=== PATIENT | male | born 1940 | race Caucasian/White ===

== ENCOUNTER 2016-08-10 06:52 | Day surgery (SDC) ==
[2016-08-10] MEDS: AK-DILATE 10% OPTH SOL OP ONE ×3 (07:20→07:30)
[2016-08-10] MEDS: OCUFEN 0.03% OPTH SOL OP ONE ×3 (07:20→07:50)
[2016-08-10] MEDS: CYCLOGYL 2% OPTH OP ONE ×3 (07:20→07:30)
[2016-08-10] MEDS: TETRACAINE 0.5% OPTH SOL MM ONE ×3 (07:20→07:50)
[2016-08-10] MEDS ORDERED: LIDOCAINE 1% 20 ML MDV ONE (07:23)
[2016-08-10] MEDS ORDERED: LIDOCAINE 1% 20 ML MDV ID ONE (07:23)
[2016-08-10] MEDS ORDERED: OCUFEN 0.03% OPTH SOL OP PRN (07:41)
[2016-08-10] MEDS ORDERED: CYCLOGYL 2% OPTH OP PRN (07:41)
[2016-08-10] MEDS ORDERED: TETRACAINE 0.5% UNIT-DOSE OP PRN (07:41)
[2016-08-10] MEDS ORDERED: AK-DILATE 10% OPTH SOL OP PRN (07:41)
[2016-08-10] MEDS ORDERED: VERSED ONE (09:00)
[2016-08-10] MEDS ORDERED: BETADINE OPTH PREP OP ONE (09:05)
[2016-08-10] MEDS ORDERED: LIDOCAINE 1 % AMP 2 ML (SUTURES) INJ ONE (09:10)
[2016-08-10] MEDS ORDERED: ADRENALIN 1:1000 SDV IR ONE (09:10)
[2016-08-10] MEDS ORDERED: TIMOPTIC 0.5% OPTH OP ONE (09:24)
[2016-08-10] MEDS ORDERED: DIAMOX ONE (10:17)
[2016-08-10] MEDS ORDERED: DIAMOX PO ONE (10:17)
[2016-08-10 10:21] VITALS: BP 150/84; TEMP 97.6
--- NOTE | 2016-08-10 13:05 | OP ---
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 POSTOPERATIVE DIAGNOSIS: SAME. OPERATION PHACOEMULSIFICATION ASPIRATION OF CATARACT RIGHT EYE. PLACEMENT OF POSTERIOR CHAMBER LENS. PHACO TIME 34.7 SECONDS AT 7.0% POWER. LENS MODEL TECNIS [id number]. DIOPTER 22.5D. TECHNIQUE: CLEAR CORNEA. ANESTHESIA: TOPICAL ANESTHESIA W/ANESTHESIA MONITORING. OPERATIVE REPORT: Topical anesthesia consisting of Tetracaine was applied to the cornea and Xylocaine Methyl Paraben free of MFP was injected intracamerally into the anterior chamber. The patient was then brought into the operating room , prepped and draped in the usual ophthalmic manner. A lid speculum was placed and the operating microscope was used. A paracentesis was made at the 3 o' clock position. A clear corneal incision was made just out to the limbus. The anterior chamber was entered just inside the clear cornea. Viscoelastic was injected into the anterior chamber. A capsulotomy was performed with a bent # 27 gauge needle. Phacoemulsification was then performed in the posterior chamber. After completion of the phacoemulsification, residual cortical material was aspirated with the irrigation-aspiration system. The posterior capsule was polished. Viscoelastic was injected into the anterior and posterior chambers to inflate the capsular bag. Lens were placed via an Unfolder system and stabilized in the bag. Viscoelastic was removed from the anterior chamber. The wound was checked for any leakage. The four sponges were removed from the fornix. Topical antibiotic steroid and nonsteroidal drops were also applied to the cornea. A Brito shield was applied. The patient left the operating room in good condition without any complications. INTRAOPERATIVE MEDICATIONS: Xylocaine Methyl Paraben Free MPF MTDD
== END 2016-08-10 10:40 | disposition home or self-care (01) ==
LOC: SURG 06:52
PROVIDERS: ATTEND Ophthalmology
DX: H25.11 Age-related nuclear cataract, right eye (principal); H26.9 Unspecified cataract

== ENCOUNTER 2016-09-07 08:07 | Day surgery (SDC) | payer OTHER ==
[2016-09-07] MEDS: TETRACAINE 0.5% OPTH SOL MM ONE ×2 (08:30→08:45)
[2016-09-07] MEDS: AK-DILATE 10% OPTH SOL OP ONE ×4 (08:30→08:45)
[2016-09-07] MEDS: CYCLOGYL 2% OPTH OP ONE ×3 (08:30→08:45)
[2016-09-07] MEDS ORDERED: TETRACAINE 0.5% OPTH SOL OP ONE (08:30)
[2016-09-07] MEDS ORDERED: OCUFEN 0.03% OPTH SOL OP ONE ×2 (08:30→08:35)
[2016-09-07] MEDS: OCUFEN 0.03% OPTH SOL OP ONE ×2 (08:30→08:45)
[2016-09-07] MEDS ORDERED: TETRACAINE 0.5% OPTH SOL MM ONE (08:35)
[2016-09-07] MEDS ORDERED: CYCLOGYL 2% OPTH OP ONE (08:35)
[2016-09-07] MEDS ORDERED: TETRACAINE 0.5% UNIT-DOSE OP PRN (08:36)
[2016-09-07] MEDS ORDERED: AK-DILATE 10% OPTH SOL OP PRN (08:36)
[2016-09-07] MEDS ORDERED: CYCLOGYL 2% OPTH OP PRN (08:36)
[2016-09-07] MEDS ORDERED: OCUFEN 0.03% OPTH SOL OP PRN (08:36)
[2016-09-07] MEDS ORDERED: DIAMOX ONE (08:42)
[2016-09-07] MEDS ORDERED: LIDOCAINE 1% 20 ML MDV ID ONE (08:42)
[2016-09-07] MEDS ORDERED: VERSED ONE (09:45)
[2016-09-07] MEDS ORDERED: BETADINE OPTH PREP OP ONE (10:00)
[2016-09-07] MEDS ORDERED: EPINEPHRINE 1:1,000 AMP IR ONE (10:05)
[2016-09-07] MEDS ORDERED: LIDOCAINE 1 % AMP 5 ML (SUTURES) INJ ONE (10:10)
[2016-09-07] MEDS ORDERED: TIMOPTIC 0.5% OPTH OP ONE (10:14)
[2016-09-07] MEDS ORDERED: DIAMOX PO ONE (10:43)
[2016-09-07 11:09] VITALS: BP 169/91; TEMP 97
--- NOTE | 2016-09-07 13:36 | OP ---
PREOPERATIVE DIAGNOSIS: NUCLEAR SCLEROTIC/CORTICAL CATARACT LEFT EYE. POSTOPERATIVE DIAGNOSIS: SAME. OPERATION PHACOEMULSIFICATION ASPIRATION OF CATARACT LEFT EYE. PLACEMENT OF POSTERIOR CHAMBER LENS. PHACO TIME 30.8 SECONDS AT 10.0% POWER. LENS MODEL TECNIS [id number]. DIOPTER 22.0D. TECHNIQUE: CLEAR CORNEA. ANESTHESIA: TOPICAL ANESTHESIA W/ANESTHESIA MONITORING. OPERATIVE REPORT: Topical anesthesia consisting of Tetracaine was applied to the cornea and Xylocaine Methyl Paraben free of MFP was injected intracamerally into the anterior chamber. The patient was then brought into the operating room , prepped and draped in the usual ophthalmic manner. A lid speculum was placed and the operating microscope was used. A paracentesis was made at the 3 o' clock position. A clear corneal incision was made just out to the limbus. The anterior chamber was entered just inside the clear cornea. Viscoelastic was injected into the anterior chamber. A capsulotomy was performed with a bent # 27 gauge needle. Phacoemulsification was then performed in the posterior chamber. After completion of the phacoemulsification, residual cortical material was aspirated with the irrigation-aspiration system. The posterior capsule was polished. Viscoelastic was injected into the anterior and posterior chambers to inflate the capsular bag. Lens were placed via an Unfolder system and stabilized in the bag. Viscoelastic was removed from the anterior chamber. The wound was checked for any leakage. The four sponges were removed from the fornix. Topical antibiotic steroid and nonsteroidal drops were also applied to the cornea. A Brito shield was applied. The patient left the operating room in good condition without any complications. INTRAOPERATIVE MEDICATIONS: Xylocaine Methyl Paraben Free MPF MTDD
== END 2016-09-07 11:10 | disposition home or self-care (01) ==
LOC: SURG 08:07
PROVIDERS: ATTEND Ophthalmology
DX: H25.12 Age-related nuclear cataract, left eye (principal)